=== PATIENT | male | born 1985 ===

== ENCOUNTER 2017-01-18 10:16 | Inpatient (IN) | payer MEDICAID ==
[2017-01-18 10:26] VITALS: BMI 38.2
[2017-01-18 10:27] VITALS: O2SAT 100
--- NOTE | 2017-01-18 10:35 | ED PDOC ---
Arrival/HPI - General Time Seen by Provider: 01/18/17 10:32 Historian: Patient, Other (transfer paper) - History of Present Illness Narrative History of Present Illness (Text): 01/18/17 31 yo male w/PMHx of depression, polysubstance abuse, transfer to [place] ED for admission to psych flood s/o . As per patient, " my depression worsen for past few days, developed suicidal ideation", denies attempts. Diagnostics review in transfer papers, appears without acute abnormalities. Pt is AAO#3, cooperative, not in any apparent distress. Past Medical History - Provider Review Nursing Documentation Reviewed: Yes - Travel History Have you recently traveled outside US w/in the past 3 mons?: No - Tetanus Immunization Tetanus Immunization: Unknown Family/Social History - Physician Review Nursing Documentation Reviewed: Yes Family/Social History: No Known Family HX Smoking Status: Heavy Smoker > 10 Cigarettes Daily Hx Alcohol Use: Yes Hx Substance Use: Yes Allergies/Home Meds Allergies/Adverse Reactions: Allergies No Known Allergies Allergy (Verified 01/18/17 12:29) Home Medications: Home Meds Medication Instructions Recorded Confirmed Benztropine [Cogentin] 1 mg PO DAILY 01/18/17 01/18/17 Haloperidol [Haldol] 10 mg PO DAILY 01/18/17 01/18/17 Review of Systems - Review of Systems Constitutional: Normal Eyes: Normal ENT: Normal Respiratory: Normal Cardiovascular: Normal Gastrointestinal: Normal Genitourinary Male: Normal Musculoskeletal: Normal Skin: Normal Neurological: Normal Endocrine: Normal Hemo/Lymphatic: Normal Psychiatric: Depression, Suicidal Ideation Physical Exam Vital Signs Reviewed: Yes Vital Signs Temp Pulse Resp BP Pulse Ox 01/18/17 10:26 98.7 F 87 18 127/86 100 Temperature: Afebrile Blood Pressure: Normal Pulse: Regular Respiratory Rate: Normal Appearance: Positive for: Well-Appearing, Non-Toxic, Comfortable Pain Distress: None Mental Status: Positive for: Alert and Oriented X 3 - Systems Exam Head: Present: Atraumatic, Normocephalic Pupils: Present: PERRL Conjunctiva: Present: Normal Mouth: Present: Moist Mucous Membranes. No: Drooling Neck: Present: Trachea Midline. No: JVD Respiratory/Chest: Present: Clear to Auscultation, Good Air Exchange. No: Respiratory Distress, Accessory Muscle Use Cardiovascular: Present: Regular Rate and Rhythm, Normal S1, S2. No: Murmurs Abdomen: Present: Normal Bowel Sounds. No: Tenderness, Distention, Peritoneal Signs, Rebound, Guarding Back: No: CVA Tenderness Upper Extremity: Present: Normal ROM, NORMAL PULSES, Capillary Refill < 2s. No : Deformity Lower Extremity: Present: NORMAL PULSES, Normal ROM. No: Edema, CALF TENDERNESS , Swelling, Deformity Neurological: Present: GCS=15, Speech Normal Skin: Present: Warm, Dry, Normal Color. No: Rashes Psychiatric: Present: Alert, Oriented x 3, Suicidal Ideation Medical Decision Making ED Course and Treatment: 01/18/17 Admission arranged to psych floor s/o . - Medication Orders Current Medication Orders: Acetaminophen (Tylenol 325mg Tab) 650 mg PO Q4 PRN PRN Reason: Pain, Mild (1-3) Last Admin: 01/18/17 13:00 Dose: 650 mg [facility] Pain/Vitals Document 01/18/17 13:00 TW (Rec: 01/18/17 13:00 TW [id number]) Pain Reassessment Is This A Pain ReAssessment? Yes Presence of Pain Presence of Pain Yes Pain Scale Used Pain Scale Used Numeric Location Pain Location Body Site Back Description Constant Intensity 3 Scale Used Numeric Re-Assess: [facility] Pain/Vitals Document 01/18/17 14:00 TW (Rec: 01/18/17 15:35 TW [id number]) Pain Reassessment Is This A Pain ReAssessment? Yes Presence of Pain Presence of Pain Yes Pain Scale Used Pain Scale Used Numeric Location Pain Location Body Site Back Intensity 1 Al Hydrox/Mg Hydrox/Simethicone (Maalox Plus 30 Ml) 30 ml PO DAILY PRN PRN Reason: Upset Stomach Benztropine Mesylate (Cogentin) 1 mg PO 1000,2200 ROMAINE Last Admin: 01/18/17 12:48 Dose: 1 mg Diphenhydramine HCl (Benadryl) 50 mg PO TID PRN PRN Reason: Agitation Haloperidol (Haldol) 5 mg PO TID PRN; Protocol PRN Reason: Agitation Haloperidol (Haldol) 5 mg PO 1000,2200 ROMAINE PRN Reason: Protocol Last Admin: 01/18/17 12:23 Dose: Haloperidol Lactate (Haldol) 5 mg IM TID PRN; Protocol PRN Reason: Agitation Lorazepam (Ativan) 2 mg PO TID PRN; Protocol PRN Reason: Agitation Lorazepam (Ativan) 2 mg IM TID PRN; Protocol PRN Reason: Agitation Lorazepam (Ativan) 2 mg PO Q6H ROMAINE PRN Reason: Protocol Magnesium Hydroxide (Milk Of Magnesia) 30 ml PO DAILY PRN PRN Reason: Constipation Discontinued Medications Diphenhydramine HCl (Benadryl) 50 mg PO TID PRN PRN Reason: Agitation Haloperidol (Haldol) 10 mg PO ONCE ONE PRN Reason: Protocol Stop: 01/18/17 12:23 Last Admin: 01/18/17 12:48 Dose: 10 mg Behavioural Document 01/18/17 12:48 TW (Rec: 01/18/17 12:48 TW [id number]) Maintenance Maintenance Dose Yes Re-Assess: Reassess Psych Meds Document 01/18/17 13:48 TW (Rec: 01/18/17 15:34 TW [id number]) Reassess Psych Med Effective Disposition/Present on Arrival - Present on Arrival Any Indicators Present on Arrival: No - Disposition Have Diagnosis and Disposition been Completed?: Yes Diagnosis: Depression Disposition: HOSPITALIZED Disposition Time: 10:34 Patient Plan: Admission Patient Problems: Current Active Problems Problem Status Onset Depression Acute Bipolar 1 disorder Acute Alcohol abuse Acute Condition: STABLE
[2017-01-18] MEDS ORDERED: Magnesium Hydroxide Susp 30 ml UD PO PRN (11:52)
[2017-01-18] MEDS ORDERED: Alum-Mag Hydrox-Simethicone Susp (30 mL) PO PRN (11:52)
--- NOTE | 2017-01-18 12:01 | PCM.BM ---
<Ming Bello - Last Filed: 01/18/17 11:59> Treatment Plan Problems - Problems identified on initial assessmt Command Auditory Hallucinations Date Initiated: 01/18/17 Time Initiated: 11:59 Status: Active Priority: 1 Altered Thought Process Date Initiated: 01/18/17 Time Initiated: 11:59 Assessment reference: NA Status: Active Priority: 2 Treatment assets and liabiliti Patient Assests: cooperative, ADL independent, negotiates basic needs Patient Liabilities: live alone, substance abuse - Milieu Protocol Maintain good personal hygiene: daily Encourage regular showers, daily Remind patient to perform daily oral care, daily Assist patient to perform ADL's Maintain personal safety: every shift Educate patient to report safety concerns to staff, every shift Monitor environment for contraband/sharps Medication safety: Monitor for expected outcome, potential side effects: every shift, Assess barriers to learning: every shift, Assess readiness for medication education: every shift Discharge/Continuing Care - Education Needs Education Needs: Patient Medication, Patient Diagnosis/Disease Process, Patient Coping Skills - Discharge Discharge Criteria: Tolerates medication w/o severe side effects, Free of Suicidal thoughts, Normal sleep pattern <Clary Aguila - Last Filed: 01/18/17 13:06> - Diagnosis (1) Bipolar 1 disorder Status: Acute Interventions: 01/18/17 13:08 Psychoeducation Psychopharmacology/adjustment of medications as needed/ monitoring possible side effects Monitor blood level of mood stabilizers Evaluate pt on daily basis Compliance with medications and follow up appointments Suicide and homicide risk assessment and prevention, coping strategies, safety plan Relapse prevention Reduction of symptoms Improve functional status Family involvement As outpatient: cognitive behavioral therapy (2) Alcohol abuse Status: Acute Interventions: 01/18/17 13:08 Monitoring withdrawal symptoms Medical detoxification Pharmacotherapy for alcohol/benzos/opioid dependence Maintaining sobriety Relapse prevention Possible rehabilitation Motivational interviewing 12-step programs: AA meetings <Lolis Stephens - Last Filed: 01/21/17 09:38> Family Contact Family involvement: Famliy/SO not involved Family contact: Patient declines to allow family contact at present - Goals for Treatment Patient goals for treatment: "To go to [place], [place]."
--- NOTE | 2017-01-18 13:20 | PCM.PSYCH ---
<Clary Aguila - Last Filed: 01/18/17 14:25> Initial Psychiatric Evaluation - Initial Psychiatric Evaluation Type of Admission: Voluntary Chief Complaint (in patient's own words): "The voices were really loud" Patient's Reaction to Hospitalization: "I need my shot, I need my medication, and I want to go to live in a sober house " History of Present Illness and Precipitating Events: This 31 year old male was referred from [facility] emergency room for inpatient admission. Patient is homeless, indicates he lived most recently in [place] for the last 8 days, but prior to that was living in [place]. 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 He is not on public assistance having never stayed anywhere long enough to get benefits or housing. 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 Patient has been having psychiatric symptoms since he was 20 and had his first hospitalization. He has been hospitalized "40 to 50 times" in multiple states, a mixture of involuntary and voluntary admissions. He denies any history of suicide attempts indicating he is always hospitalized "for the voices". He has been stabilized in the past with Haldol and cogentin, as well as the Haldol Decanoate shot. He is always noncompliant with followup quickly moving to new places. He hears voices at baseline. He denies any allergies to food or drugs, and indicates he does not have any ongoing medical issues. Patient uses alcohol daily when he can get it of varying amounts, his last drink was according to him 4 days ago. He smokes marijuana when he can get it, denies any use of any other illicit drugs. Patient denies any legal issues, denies ever being arrested. Family history is negative for psychiatric issues, his father of alcoholism. Patient grew up in [place], he is the youngest of 5 and the only one to be raised by his father. He does not have a relationship with his family. He says his childhood was "great" and he did well in school and had friends until middle school. He is not sure why that changed. He dropped out kiara year to take care of his father who when he was 17. He has no other educational history and has never worked. Patient is alert and oriented x3, eye contact is poor, and patient is preoccupied appearing to be responding to internal stimuli. He denies being suicidal or homicidal. Mood is blunted, affect is irritable, thoughts at time are concrete and simplistic. He denies the presence of visual hallucinations, however he does hear audio hallucinations at baseline. He indicates the voices are "loud background noise" and denies that they are command. He denies the presence of delusions, paranoid trends are present in conversation. His focus and concentration are impaired, he reports his sleep and appetite as good. AIMS exam today was negative. PLAN:Psychoeducation Psychopharmacology/adjustment of medications as needed/ monitoring possible side effects Monitor blood level of mood stabilizers Evaluate pt on daily basis Compliance with medications and follow up appointments Suicide and homicide risk assessment and prevention, coping strategies, safety plan Relapse prevention Reduction of symptoms Improve functional status Family involvement As outpatient: cognitive behavioral therapy Assess for withdrawal and medicate appropriately. Current Medications: Active Medications Generic Name Dose Route Start Last Admin Trade Name Freq PRN Reason Stop Dose Admin Acetaminophen 650 mg 01/18/17 11:52 01/18/17 13:00 Tylenol 325mg Tab PO 650 mg Q4 PRN Administration Pain, Mild (1-3) Al Hydrox/Mg Hydrox/Simethicone 30 ml 01/18/17 11:52 Maalox Plus 30 Ml PO DAILY PRN Upset Stomach Benztropine Mesylate 1 mg 01/18/17 12:22 01/18/17 12:48 Cogentin PO 1 mg 1000,2200 ROMAINE Administration Diphenhydramine HCl 50 mg 01/18/17 11:55 Benadryl PO TID PRN Agitation Haloperidol 5 mg 01/18/17 11:40 Haldol PO TID PRN Agitation Protocol Haloperidol 5 mg 01/18/17 11:46 01/18/17 12:23 Haldol PO Not Given 1000,2200 ROMAINE Protocol Haloperidol Lactate 5 mg 01/18/17 11:40 Haldol IM TID PRN Agitation Protocol Lorazepam 2 mg 01/18/17 11:40 Ativan PO TID PRN Agitation Protocol Lorazepam 2 mg 01/18/17 11:40 Ativan IM TID PRN Agitation Protocol Magnesium Hydroxide 30 ml 01/18/17 11:52 Milk Of Magnesia PO DAILY PRN Constipation Past Psychiatric History - Past Psychiatric History Pertinent Medical Hx (Current Medical&Sleep Prob, Allergies): Allergies Allergy/AdvReac Type Severity Reaction Status Date / Time No Known Allergies Allergy Verified 01/18/17 12:29 Benztropine [Cogentin] 1 mg PO DAILY 01/18/17 Haloperidol [Haldol] 10 mg PO DAILY 01/18/17 <Yancy Bradley - Last Filed: 01/18/17 16:18> Initial Psychiatric Evaluation - Initial Psychiatric Evaluation Type of Admission: Voluntary Legal Status: Capacity (pt has capacity to sign consent for treatment) Patient's Reaction to Hospitalization: pt was transferred from [facility] for evaluation of psychosis, possible SI , meds resumption and titration History of Present Illness and Precipitating Events: addendum to the [facility] note: patient has long history of mental illness, most likely patient has history or schizoaffective disorder versus schizophrenia, multiple admissions to the psychiatric inpatient unit, patient denied history of suicidal attempts. patient was transferred from the [facility] for evaluation of possible suicidal ideation, worsening of psychotic symptoms, patient was noncompliant with the medications, patient also has history of alcohol use disorder blood alcohol level in the emergency room [facility] was 66, marijuana was positive. As per [facility] report pt reported "I was hearing voices, suicidal, and depressed; " "I thought I could make it, but I need to be somewhere safe" Pt is originally from [place], [place] and reports being hospitalized in the [facility] of [place], [place], [place], [place] all secondary to experiencing "voices"; Pt stated he has been diagnosed with "Paranoid Schizophrenia"; Pt reportedly left [place], [place] "7months ago" and relocated in [facility]. During interview patient presented to be disorganized, paranoid, irritable, impulses aren't predictable. Medication management was discussed with the patient, patient was educated about treatment plan. Current Medications: Active Medications Generic Name Dose Route Start Last Admin Trade Name Freq PRN Reason Stop Dose Admin Acetaminophen 650 mg 01/18/17 11:52 01/18/17 13:00 Tylenol 325mg Tab PO 650 mg Q4 PRN Administration Pain, Mild (1-3) Al Hydrox/Mg Hydrox/Simethicone 30 ml 01/18/17 11:52 Maalox Plus 30 Ml PO DAILY PRN Upset Stomach Benztropine Mesylate 1 mg 01/18/17 12:22 01/18/17 12:48 Cogentin PO 1 mg 1000,2200 ROMAINE Administration Diphenhydramine HCl 50 mg 01/18/17 11:55 Benadryl PO TID PRN Agitation Haloperidol 5 mg 01/18/17 11:40 Haldol PO TID PRN Agitation Protocol Haloperidol 5 mg 01/18/17 11:46 01/18/17 12:23 Haldol PO Not Given 1000,2200 ROMAINE Protocol Haloperidol Lactate 5 mg 01/18/17 11:40 Haldol IM TID PRN Agitation Protocol Lorazepam 2 mg 01/18/17 11:40 Ativan PO TID PRN Agitation Protocol Lorazepam 2 mg 01/18/17 11:40 Ativan IM TID PRN Agitation Protocol Magnesium Hydroxide 30 ml 01/18/17 11:52 Milk Of Magnesia PO DAILY PRN Constipation Past Psychiatric History - Past Psychiatric History Prior Professional Help: see HPI Prior Psychiatric Treatment: see HPI At what hospital: see HPI Duration: see HPI Nature of Treatment: see HPI Explanation of prior treatment: see HPI Patient reported being on haloperidol, Cogentin, willing to resume medication History of Abuse: denied History of ETOH/Drug Use: see HPI History of Family Illness: unknown Pertinent Medical Hx (Current Medical&Sleep Prob, Allergies): Allergies Allergy/AdvReac Type Severity Reaction Status Date / Time No Known Allergies Allergy Verified 01/18/17 12:29 Benztropine [Cogentin] 1 mg PO DAILY 01/18/17 Haloperidol [Haldol] 10 mg PO DAILY 01/18/17 Review of Systems - Review of Systems Systems not reviewed;Unavailable: Acuity of Condition - EENT Eyes: As Per HPI Ears: As Per HPI Nose/Mouth/Throat: As Per HPI - Cardiovascular Cardiovascular: As Per HPI - Respiratory Respiratory: As Per HPI - Gastrointestinal Gastrointestinal: As Per HPI - Genitourinary Genitourinary: As Per HPI - Reproductive: Male Reproductive:Male: As Per HPI - Musculoskeletal Musculoskeletal: As Par HPI - Integumentary Integumentary: As Per HPI - Neurological Neurological: As Per HPI - Psychiatric Psychiatric: As Per HPI - Endocrine Endocrine: As Per HPI - Hematologic/Lymphatic Hematologic: As Per HPI Mental Status Examination - Personal Presentation Personal Presentation: Looks stated age - Affect Affect: Constricted (angry, irritable) - Motor Activity Motor Activity: Calm - Reliability in Providing Information Reliability in Providing Information: Poor, due to alteration in thoughts, Poor , due to altered mood, Poor, due to cognitve impairment - Speech Speech: Disorganized, Tangential, Other (concrete) - Mood Mood: Depressed, Anxious, Other ("I feel fine") Additional comments: pt has irritable affect mood incongruent - Formal Thought Process Formal Thought Process: Hallucinations, Paranoia - Hallucinations/Delusions Hallucinations: Auditory - Cognitive Functions Orientation: Person, Place, Situation Sensorium: Alert Attention/Concentration: Easily distracted Abstract Thinking: [place] Estimate of Intelligence: Below average Judgement: Intact, as evidence by: Insight regarding need for hospitalization - Risk Risk: Withdrawal, Self-mutilation, Diminished functioning, Other (no support in the community) - Strength & Assets Inventory Strength & Assets Inventory: Cooperative (has good insight into his illness) - Limitations Limitations: Other (long h/o mental illness, recent move from other state, noncompliance with meds, poor support) DSM 5 DX - DSM 5 DSM 5 Diagnosis: r/o schizoaffective disorder r/o schizophrenia r/o bipolar disorder with psychosis alcohol abuse - Recommended/Plan of Treatment Treatment Recommendations and Plan of Treatment: Milieu/structure/supportive therapy Medical consult appreciated, see medical team note for more detailed info consultation for discharge plan and social issues Med management haldol 5mg po bid for psychosis cogentin 2mg po bid for EPS PRN ativan for possible alcohol withdrawals PRN meds for possible agitation MVI, thiamine, folic acid Family involvement Follow up on labs Will monitor closely SW evaluation for d/c planning Pt was educated about risk/benefits and alternatives of medications, coping strategies (safety plan, suicide prevention), relapse prevention, importance of follow up with psychiatrist and therapist, stay away from drugs/alcohol/smoking Projected ELOS: 7days Prognosis: guarded Discharge Plan and Discharge Criteria: Pt will be not depressed or manic, will be more hopeful, will be not psychotic or anxious, will be not having thoughts of harming self or others, will be tolerating medications well, will not have major side effects, will be able to function, will not pose threat to self or others. - Smoking Cessation Smoking Cessation Initiated: Yes Reason for not providinpack a day, does not want to be on NicoDerm patch, counseling provided
[2017-01-19 08:20] LABS: CHOLESTEROL 131 mg/dL (130-200); GLUCOSE,FASTING 105 mg/dL (65-110)
[2017-01-19 08:49] LABS: THYROID STIMULATING HORMONE 1.86 mIU/mL (0.46-4.68)
[2017-01-19 11:16] LABS: BASO # 0.07 K/mm3 (0.0-2.0); BASO % 0.7 % (0.0-3.0); EOS # 0.3 (0.0-0.7); EOS % 2.4 % (1.5-5.0); GRAN # 6.32 (1.4-6.5); GRAN % 61.4 % (50.0-68.0); HEMATOCRIT 45.5 % (42.0-52.0); LYMPH # 2.8 (1.2-3.4); LYMPH % 26.7 % (22.0-35.0); MEAN CELL VOLUME 91.4 fl (80.0-105.0); MEAN CORPUSCULAR HEMOGLOBIN 31.1 pg (25.0-35.0); MEAN CORPUSCULAR HGB CONC 34.1 g/dl (31.0-37.0); MEAN PLATELET VOLUME 10.7 fl (7.0-11.0); MONO # 0.9 (0.1-0.6); MONO % 8.8 % (1.0-6.0); RED CELL DISTRIBUTION WIDTH 13.7 % (11.5-14.5); WHITE BLOOD COUNT 10.3 10^3/ul (4.5-11.0)
[2017-01-19 11:19] LABS: FREE T4 1.22 ng/dL (0.78-2.19)
--- NOTE | 2017-01-19 17:17 | CP.PCM.CON ---
<Christine Dill - Last Filed: 01/19/17 17:14> History of Present Illness - History of Present Illness History of Present Illness: Christine Dill DO PGY1 - Internal Medicine Consult Note Consultation for medical screening HPI: 31 year old male with past medical history of paranoid schizophrenia presents from [facility] with complaint of hearing voices, depression, and possible suicidal ideation. He reports multiple psychiatric admissions in the past; he has taken Haldol in the past but admits to noncompliance. He denies somatic complaints including fever/chills, headache, vision changes, shortness of breath, chest pain, and abdominal pain. He admits to drinking 1 pint vodka daily; he denies tremor, diaphoresis, visual hallucinations. 12 point ROS is negative except as in HPI PMH: denies PSH: denies Allergy: NKDA Home meds: none Family Hx: none Social Hx: Drinks 1 pint vodka daily, current active smoker 1ppd, uses marijuana , denies other drug use. Homeless, recently moved to [place] from [place]. Past Patient History - Tetanus Immunizations Tetanus Immunization: Unknown - Past Social History Smoking Status: Heavy Smoker > 10 Cigarettes Daily - PSYCHIATRIC Hx Substance Use: Yes Meds Allergies/Adverse Reactions: Allergies Allergy/AdvReac Type Severity Reaction Status Date / Time No Known Allergies Allergy Verified 01/18/17 12:29 - Medications Medications: Current Medications Acetaminophen (Tylenol 325mg Tab) 650 mg PO Q4 PRN PRN Reason: Pain, Mild (1-3) Last Admin: 01/18/17 13:00 Dose: 650 mg Al Hydrox/Mg Hydrox/Simethicone (Maalox Plus 30 Ml) 30 ml PO DAILY PRN PRN Reason: Upset Stomach Benztropine Mesylate (Cogentin) 1 mg PO 1000,2200 ROMAINE Last Admin: 01/19/17 10:07 Dose: 1 mg Diphenhydramine HCl (Benadryl) 50 mg PO TID PRN PRN Reason: Agitation Haloperidol (Haldol) 5 mg PO TID PRN; Protocol PRN Reason: Agitation Haloperidol (Haldol) 5 mg PO 1000,2200 ROMAINE PRN Reason: Protocol Last Admin: 01/19/17 10:06 Dose: 5 mg Haloperidol Lactate (Haldol) 5 mg IM TID PRN; Protocol PRN Reason: Agitation Lorazepam (Ativan) 2 mg PO TID PRN; Protocol PRN Reason: Agitation Lorazepam (Ativan) 2 mg IM TID PRN; Protocol PRN Reason: Agitation Lorazepam (Ativan) 2 mg PO Q6H ROMAINE PRN Reason: Protocol Last Admin: 01/19/17 12:50 Dose: 2 mg Magnesium Hydroxide (Milk Of Magnesia) 30 ml PO DAILY PRN PRN Reason: Constipation Physical Exam - Constitutional Appears: Non-toxic, No Acute Distress - Head Exam Head Exam: ATRAUMATIC, NORMOCEPHALIC - Eye Exam Eye Exam: EOMI, Normal appearance, PERRL Pupil Exam: absent: Miosis, Mydriatic - ENT Exam ENT Exam: Mucous Membranes Moist - Neck Exam Neck exam: Positive for: Normal Inspection - Respiratory Exam Respiratory Exam: Clear to Auscultation Bilateral, NORMAL BREATHING PATTERN - Cardiovascular Exam Cardiovascular Exam: REGULAR RHYTHM, +S1, +S2 - GI/Abdominal Exam GI & Abdominal Exam: Normal Bowel Sounds, Soft. absent: Distended, Firm, Guarding, Rebound, Rigid, Tenderness - Extremities Exam Extremities exam: Negative for: calf tenderness, pedal edema - Neurological Exam Neurological exam: Alert, CN II-XII Intact, Oriented x3 - Psychiatric Exam Additional comments: No apparent suicidal ideation Euphoric Laughing at things we could not see/hear - Skin Skin Exam: Dry, Intact Results - Vital Signs Recent Vital Signs: Last Vital Signs Temp 98.7 F 01/18/17 10:26 Pulse 65 01/19/17 15:51 Resp 16 01/18/17 11:33 BP 114/70 01/19/17 15:51 Pulse Ox 100 01/18/17 10:26 - Labs Result Diagrams: 01/19/17 11:13 Labs: Laboratory Results - last 24 hr 01/19/17 01/19/17 01/19/17 07:45 07:45 11:13 WBC 10.3 RBC 4.98 Hgb 15.5 Hct 45.5 MCV 91.4 MCH 31.1 MCHC 34.1 RDW 13.7 Plt Count 259 MPV 10.7 Gran % 61.4 Lymph % (Auto) 26.7 [place] % (Auto) 8.8 H Eos % (Auto) 2.4 Baso % (Auto) 0.7 Gran # 6.32 Lymph # 2.8 [place] # 0.9 H Eos # 0.3 Baso # 0.07 Fasting Glucose 105 Triglycerides 128 Cholesterol 131 LDL Cholesterol Direct 65 HDL Cholesterol 44 Free T4 1.22 TSH 3rd Generation 1.86 Assessment & Plan - Assessment and Plan (Free Text) Assessment: Assessment: 31 year old male with history of multiple psychiatric admissions for paranoid schizophrenia presents for psychiatric treatment with complaint of auditory hallucinations, depression, and possible suicidal ideation. Plan 1.Auditory hallucinations secondary to acute psychosis vs. substance-induced - Hx of paranoid schizophrenia - currently on Haldol, Ativan, Cogentin - Pt had labs drawn for prior admission at [facility] notable for alcohol level 66; urine positive for benzos, marijuana - Considering history and current presentation, less likely to be 2/2 substance abuse/withdrawal; does not appear to be actively withdrawing - Continue management as per psych 2.Depression with suicidal ideation - Patient currently denies suicidal ideation - TSH and BS normal - Continue management as per psych 3.Leukocytosis (on admission at [facility] on 01/18) - Patient is afebrile, no signs/symptoms of infectious processes - Initial UA and CXR negative - Leukocytosis resolved on repeat CBC; likely reactive 4.Alcohol use disorder - Alcohol level 66 (on admission at [facility] on 01/18) - Patient does not appear to be actively withdrawing - Continue PRN Ativan for symptoms of withdrawal 5.Tobacco use disorder - Refused nicotine patch - Encourage smoking cessation 6.Substance use disorder - Urine positive for benzos, marijuana (on admission at [facility] on 01/18) - Encourage drug use cessation DVT Ppx: patient is ambulatory Patient was seen, discussed, and reviewed with attending <Nona Oh - Last Filed: 01/19/17 17:46> Meds - Medications Medications: Current Medications Acetaminophen (Tylenol 325mg Tab) 650 mg PO Q4 PRN PRN Reason: Pain, Mild (1-3) Last Admin: 01/18/17 13:00 Dose: 650 mg Al Hydrox/Mg Hydrox/Simethicone (Maalox Plus 30 Ml) 30 ml PO DAILY PRN PRN Reason: Upset Stomach Benztropine Mesylate (Cogentin) 1 mg PO 1000,2200 RMOAINE Last Admin: 01/19/17 10:07 Dose: 1 mg Diphenhydramine HCl (Benadryl) 50 mg PO TID PRN PRN Reason: Agitation Haloperidol (Haldol) 5 mg PO TID PRN; Protocol PRN Reason: Agitation Haloperidol (Haldol) 5 mg PO 1000,2200 ROMAINE PRN Reason: Protocol Last Admin: 01/19/17 10:06 Dose: 5 mg Haloperidol Lactate (Haldol) 5 mg IM TID PRN; Protocol PRN Reason: Agitation Lorazepam (Ativan) 2 mg PO TID PRN; Protocol PRN Reason: Agitation Lorazepam (Ativan) 2 mg IM TID PRN; Protocol PRN Reason: Agitation Lorazepam (Ativan) 2 mg PO Q6H ROAMINE PRN Reason: Protocol Last Admin: 01/19/17 12:50 Dose: 2 mg Magnesium Hydroxide (Milk Of Magnesia) 30 ml PO DAILY PRN PRN Reason: Constipation Results - Vital Signs Recent Vital Signs: Last Vital Signs Temp 98.7 F 01/18/17 10:26 Pulse 65 01/19/17 15:51 Resp 16 01/18/17 11:33 BP 114/70 01/19/17 15:51 Pulse Ox 100 01/18/17 10:26 - Labs Result Diagrams: 01/19/17 11:13 Labs: Laboratory Results - last 24 hr 01/19/17 01/19/17 01/19/17 07:45 07:45 11:13 WBC 10.3 RBC 4.98 Hgb 15.5 Hct 45.5 MCV 91.4 MCH 31.1 MCHC 34.1 RDW 13.7 Plt Count 259 MPV 10.7 Gran % 61.4 Lymph % (Auto) 26.7 [place] % (Auto) 8.8 H Eos % (Auto) 2.4 Baso % (Auto) 0.7 Gran # 6.32 Lymph # 2.8 [place] # 0.9 H Eos # 0.3 Baso # 0.07 Fasting Glucose 105 Triglycerides 128 Cholesterol 131 LDL Cholesterol Direct 65 HDL Cholesterol 44 Free T4 1.22 TSH 3rd Generation 1.86 Attending/Attestation - Attestation I have personally seen and examined this patient.: Yes I have fully participated in the care of the patient.: Yes I have reviewed all pertinent clinical information: Yes Notes (Text): 01/19/17 17:32 MEDICAL CONSULTATION 30 year old male with past medical history of schizophrenia who presented with auditory hallucinations, depressed mood with SI. Continue with management as per psychiatrist. He is currently on haldol and ativan. He was counselled on risks of continued substance abuse. He was counselled on alcohol abstinence. He was counselled on smoking cessation. Labs and chart were reviewed. No acute medical issues. Thank you Dr. Bradley for allowing us to participate in the care of this patient. Please re-consult as needed. Nona Oh MD Hospitalist.
--- NOTE | 2017-01-19 17:44 | PCM.PYCHPN ---
Psychiatric Progress Note - Psychiatric Progress Note Patient seen today, length of contact: 30min Patient Chief Complaint: "I feel fine, I want to go to [place]" Problems Identified/Issues Discussed: Suicide/ homicide prevention, past psychiatric h/o, current psychiatric symptoms , medical problems, risk/benefits and alternatives of medications, medications compliance, coping strategies, substance abuse h/o, relapse prevention, importance of follow up with psychiatrist and therapist, discharge plan. Medical Problems: atient reported making healthy, medical team so patient. Diagnostic Results: 01/19/17 11:13 Lab Results 01/19/17 11:13: WBC 10.3, RBC 4.98, Hgb 15.5, Hct 45.5, MCV 91.4, MCH 31.1, MCHC 34.1, RDW 13.7, Plt Count 259, MPV 10.7, Gran % 61.4, Lymph % (Auto) 26.7, [place] % (Auto) 8.8 H, Eos % (Auto) 2.4, Baso % (Auto) 0.7, Gran # 6.32, Lymph # 2.8, [place] # 0.9 H, Eos # 0.3, Baso # 0.07 01/19/17 07:45: Free T4 1.22, TSH 3rd Generation 1.86 01/19/17 07:45: Fasting Glucose 105, Triglycerides 128, Cholesterol 131, LDL Cholesterol Direct 65, HDL Cholesterol 44 Vital Signs Temp Pulse Resp BP Pulse Ox 01/19/17 15:51 65 114/70 01/18/17 16:00 68 113/67 01/18/17 11:33 16 01/18/17 10:26 98.7 F 87 18 127/86 100 DSM 5 Symptoms Update: patient has long history of mental illness, most likely patient has history or schizoaffective disorder versus schizophrenia, multiple admissions to the psychiatric inpatient unit, patient denied history of suicidal attempts. patient was transferred from the [facility] for evaluation of possible suicidal ideation, worsening of psychotic symptoms, patient was noncompliant with the medications, patient also has history of alcohol use disorder blood alcohol level in the emergency room [facility] was 66, marijuana was positive. As per [facility] report pt reported "I was hearing voices, suicidal, and depressed; " "I thought I could make it, but I need to be somewhere safe" Pt is originally from [place], [place] and reports being hospitalized in the states of [place], [place], [place], and [place] all secondary to experiencing "voices"; Pt stated he has been diagnosed with "Paranoid Schizophrenia"; Pt reportedly left [place], [place] "7months ago" and relocated in [facility]. During interview patient presented to be disorganized, paranoid, irritable, impulsive, but with some improvement. Medication management was discussed with the patient, patient was educated about treatment plan. and was seen today at the treatment team meeting, patient presented to be disorganized, loud, residual symptoms of psychosis, but there is some improvement with patient presentation, patient was less paranoid, still internally preoccupied. He shouldn't tolerates medications well, no side effects observed or reported, aims 0, no EPS DSM 5 Diagnosis: r/o schizoaffective disorder r/o schizophrenia r/o bipolar disorder with psychosis alcohol abuse Medication Change: Yes (medication resumed) Medical Record Reviewed: Yes Consults ordered or reviewed: edical team consult appreciated Mental Status Examination - Cognitive Function Orientation: Person, Place, Situation Memory: Intact Attention: Poor Concentration: Poor Association: WNL Fund of Knowledge: Poor - Mood Mood: Depressed, Anxious, Other ("I feel fine") - Affect Affect: Constricted (angry, irritable) - Formal Thought Process Formal Thought Process: Hallucinations, Paranoia - Suicidal Ideation Suicidal Ideation: No - Homicidal Ideation Homicidal Ideation: No Goal/Treatment Plan - Goal/Treatment Plan Need for Continued Stay: Remain at risks for inpatient hospitalization, Severe depression anxiety, Discharge may exacerbated symptoms, Severe functional impairment Progress Toward Problem(s) and Goals/Treatment Plan: Milieu/structure/supportive therapy Medical consult appreciated, see medical team note for more detailed info consultation for discharge plan and social issues Med management haldol 5mg po bid for psychosis cogentin 2mg po bid for EPS PRN ativan for possible alcohol withdrawals PRN meds for possible agitation MVI, thiamine, folic acid Family involvement Follow up on labs Will monitor closely evaluation for d/c planning Pt was educated about risk/benefits and alternatives of medications, coping strategies (safety plan, suicide prevention), relapse prevention, importance of follow up with psychiatrist and therapist, stay away from drugs/alcohol/smoking Estimated Date of D/C: 01/21/17
[2017-01-20 13:59] VITALS: RESP 20
--- NOTE | 2017-01-20 21:43 | PCM.PYCHPN ---
Psychiatric Progress Note - Psychiatric Progress Note Patient seen today, length of contact: 20min Patient Chief Complaint: "I don't have voices no more and I want to be discharged" " Problems Identified/Issues Discussed: Patient indicates that he is no longer hearing voices and would like to be discharged. He no longer wants the Haldol Decanoate shot. He wants to be discharged to "meet up with his sister" in but in the past has indicated he is not involved with his family. Later in the conversation he tells me that he hears voices all of the time but with the medication they are less. He wants to leave AMA, procedure of the 48 hour notice explained to the client, he declines this but continues to demand discharge. Eventually he is agreeable to stay, paranoid trends were noted, patient's conversation at times is simplistic and illogical. He does not want more medication, and is edgy but easily calmed. This may be his baseline. AIMS exam negative. Diagnosis: Schizoaffective Disorder, Alcohol use Disorder, Cannabis use Disorder , poor insight, noncompliance in the community, homelessness Plan: Milieu/structure/supportive therapy Medical consult appreciated, see medical team note for more detailed info consultation for discharge plan and social issues Med management Family involvement Follow up on labs Will monitor closely evaluation for d/c planning Pt was educated about risk/benefits and alternatives of medications, coping strategies (safety plan, suicide prevention), relapse prevention, importance of follow up with psychiatrist and therapist, stay away from drugs/alcohol/smoking DSM 5 Symptoms Update: Patient is alert and oriented x3, eye contact is good, he is cooperative with some irritability. Speech rate and volume are within normal limits, mood is somewhat labile but under his control. Affect is constricted. Thoughts are goal directed but concrete and simplistic. He denies being suicidal or homicidal, denies the presence of audio or visual hallucinations, delusions or paranoia however patient appeared to be paranoid at times during the interview. Focus and concentration are poor, appetite and sleep are reported as normal. Medication Change: No Medical Record Reviewed: Yes Mental Status Examination - Cognitive Function Orientation: Person, Place, Situation Memory: Intact Attention: Poor Concentration: Poor Association: WNL Fund of Knowledge: Poor - Mood Mood: Depressed, Anxious, Other ("I feel fine") - Affect Affect: Constricted (angry, irritable) - Formal Thought Process Formal Thought Process: Hallucinations, Paranoia - Suicidal Ideation Suicidal Ideation: No - Homicidal Ideation Homicidal Ideation: No Goal/Treatment Plan - Goal/Treatment Plan Need for Continued Stay: Remain at risks for inpatient hospitalization, Severe depression anxiety, Discharge may exacerbated symptoms, Severe functional impairment Estimated Date of D/C: 01/21/17 - Smoking Cessation Smoking Cessation Initiated: No Reason for not providing: Patient refused "I don't do the patch"
[2017-01-21 06:53] VITALS: BP 108/60; PULSE 60; TEMP 98.1
--- NOTE | 2017-01-21 10:30 | PCM.PYCHDC ---
Mental Status Examination - Mental Status Examination Orientation: Person, Place, Situation Memory: Intact Mood: Neutral Affect: Broad Speech: Appropriate Attention: WNL Concentration: WNL Association: WNL Fund of Knowledge: WNL Formal Thought Process: No Impairment Description of patient's judgement and insight: Improved with fair insight and judgment Psychotic Thoughts and Behaviors: Patient denies AVH, delusions were not elicited. Patient denies paranoia and does not appear paranoid. Hypervigilance was not observed. Patient was not observed to be responding to internal stimuli. Suicidal Ideation: No Current Homicidal Ideation?: No Discharge Summary - Discharge Note Reason for Hospitalization: Patient has long history of mental illness, most likely patient has history or schizoaffective disorder versus schizophrenia, multiple admissions to the psychiatric inpatient unit, patient denied history of suicidal attempts. patient was transferred from the [facility] for evaluation of possible suicidal ideation, worsening of psychotic symptoms, patient was noncompliant with the medications, patient also has history of alcohol use disorder blood alcohol level in the emergency room [facility] was 66, marijuana was positive. Psychiatric History (includes Medical, Family, Personal Hx): see HPI Laboratory Data: Laboratory Tests 01/19/17 01/19/17 01/19/17 07:45 07:45 07:45 WBC RBC Hgb Hct MCV MCH MCHC RDW Plt Count MPV Gran % Lymph % (Auto) [place] % (Auto) Eos % (Auto) Baso % (Auto) Gran # Lymph # Howard # Eos # Baso # Fasting Glucose 105 Triglycerides 128 Cholesterol 131 LDL Cholesterol Direct 65 HDL Cholesterol 44 Free T4 1.22 TSH 3rd Generation 1.86 RPR Nonreactive 01/19/17 11:13 WBC 10.3 RBC 4.98 Hgb 15.5 Hct 45.5 MCV 91.4 MCH 31.1 MCHC 34.1 RDW 13.7 Plt Count 259 MPV 10.7 Gran % 61.4 Lymph % (Auto) 26.7 [place] % (Auto) 8.8 H Eos % (Auto) 2.4 Baso % (Auto) 0.7 Gran # 6.32 Lymph # 2.8 [place] # 0.9 H Eos # 0.3 Baso # 0.07 Fasting Glucose Triglycerides Cholesterol LDL Cholesterol Direct HDL Cholesterol Free T4 TSH 3rd Generation RPR Consultations:: List each consultation separately and include: 1. Reason for request. 2. Findings. 3. Follow-up Consultations: Patient seen by Dr. Oh on 01/19/17. Dr. Oh signed off as there were no acute medical issues. Summary of Hospital Course include:: 1. Description of specific treatment plan utilized for patients during their course of treatmen. 2. Summarize the time- course for resolution of acute symptoms and/or regressed behaviors. 3. Describe issues identified and worked on during hospitalization. 4. Describe medication utilized. 5. Describe medical problems identified and treated. 6. Reassessment of suicide risk Summary of Hospital Course: I reviewed assessment and recent notes. Patient was interviewed at bedside. He has been requesting discharge but declines submitting a 48 hour letter. He has a long history of mental illness, most likely schizoaffective disorder versus schizophrenia and multiple admissions to the psychiatric inpatient units. Patient was transferred from the [facility] for evaluation of possible suicidal ideation, worsening of psychotic symptoms in context of medication noncompliance as well as alcohol use. Of note, patient's blood alcohol level in [facility] ER was 66, UDS was positive for marijuana. As per [facility] report pt reported "I was hearing voices, suicidal, and depressed; " "I thought I could make it, but I need to be somewhere safe". Patient presented to [facility] with paranoia, disorganization, lability/irritability. His symptoms are improving, reports have noted improvement in paranoia, liability and impulsivity. This morning patient reported that hallucinations have resolved. His thought process is fairly coherent and consistent during my 3 interviews with him today. He jokes appropriately with me and appears fairly related. He is anxious about being discharged as soon as possible but he isn't demanding, argumentative or threatening. Patient is not responding to internal stimuli and delusions were not elicited. His eye contact and focus were fair. I reviewed his medications, their indications and side effects. I discuss the danger of continued alcohol use as well as risks of alcohol withdrawal (including seizures and ). Patient is honest and admits that he isn't sure that he will remain abstinent after discharge. However he would like a tapering dose of Ativan to help with withdrawals. He defers on naltrexone options. He is aware that he should not drink and take Ativan at the same time due to risks of respiratory depression and . This information was also written out for him though his comprehension is intact. Recent staff notes indicate that patient has been compliant with medications, engaged in groups and sleeping well. He was irritable yesterday because there was no hot water for his shower--this is reasonable. He also seemed paranoid-- this symptom wasn't noticeable to this provider during our interview today. Overall patient is comfortable with discharge today. He denies any issues with his medications and feels they are beneficial. Commits to compliance and requests that I call his prescriptions into [facility] at [place]. - Final Diagnosis (DSM 5) Condition upon Discharge: FAIR DSM 5: r/o schizoaffective disorder r/o schizophrenia r/o bipolar disorder with psychosis alcohol abuse Disposition: HOME/ ROUTINE Follow-up Treatment Plan: PER 01/20/17 08:51 - Social Work Progress Note by Lolis Stephens Patient referred to [facility] and [facility] partial program. This provider phoned [facility] on 01/21/17 and provided following medications for patient: Haldol 5 mg po bid +1RF Cogentin 1 mg po bid + 1RF Ativan 2 mg po q8 x48 hours total of 6 doses Then Ativan 2 mg po q12 x48 hours total of 4 doses Then Ativan 2 mg po daily x72 hours total of 3 doses, no RF - Smoking Cessation Smoking Cessation Medication prescribed: No - Antipsychotic Medications Pt discharged on 2 or more routine antipsychotic medications: No
== END 2017-01-21 10:52 | disposition home or self-care (01) | DRG 430 ==
LOC: ED 10:16 → ERH 10:33 → PSYC 11:08
PROVIDERS: ADMIT Psychiatry & Neurology Psychiatry; ATTEND Psychiatry & Neurology Psychiatry
DX: F31.9 Bipolar disorder, unspecified (principal); F10.10 Alcohol abuse, uncomplicated; F12.10 Cannabis abuse, uncomplicated; Y90.3 Blood alcohol level of 60-79 mg/100 ml; F17.210 Nicotine dependence, cigarettes, uncomplicated; Z59.0 Homelessness

== ENCOUNTER 2017-05-18 18:22 | Inpatient (IN) | payer MEDICAID ==
[2017-05-18 18:23] VITALS: BMI 38.2
[2017-05-18 19:08] VITALS: TEMP 99
[2017-05-18 19:18] LABS: BASO # 0.08 K/mm3 (0.0-2.0); BASO % 0.7 % (0.0-3.0); EOS # 0.2 (0.0-0.7); EOS % 1.8 % (1.5-5.0); GRAN # 6.74 (1.4-6.5); HEMOGLOBIN 14.5 g/dL (14.0-18.0); LYMPH # 4.3 (1.2-3.4); LYMPH % 35.5 % (22.0-35.0); MEAN CELL VOLUME 89.5 fl (80.0-105.0); MEAN CORPUSCULAR HGB CONC 34.7 g/dl (31.0-37.0); MEAN PLATELET VOLUME 9.9 fl (7.0-11.0); MONO # 0.7 (0.1-0.6); RBC 4.67 10^6/uL (3.5-6.1); RED CELL DISTRIBUTION WIDTH 14.1 % (11.5-14.5); URINE BILIRUBIN NEGATIVE (NEGATIVE); URINE BLOOD NEGATIVE (NEGATIVE); URINE GLUCOSE (UA) NEGATIVE (NEGATIVE); URINE LEUKOCYTE ESTERASE NEGATIVE Leu/uL (NEGATIVE); URINE PROTEIN NEGATIVE mg/dL (<30 mg/dL); URINE UROBILINOGEN 0.2 E.U./dL (<1 E.U./dL)
[2017-05-18 19:20] LABS: URINE APPEARANCE CLEAR (CLEAR); URINE COLOR YELLOW (YELLOW)
--- NOTE | 2017-05-18 19:21 | ED PDOC ---
Arrival/HPI - General Historian: Patient <Chastity Pike - Last Filed: 05/18/17 20:16> <Antonino Cleaning - Last Filed: 05/19/17 07:00> <DreMelvin L - Last Filed: 05/19/17 09:29> - General Chief Complaint: Psychiatric Evaluation Time Seen by Provider: 05/18/17 18:42 - History of Present Illness Narrative History of Present Illness (Text): 05/18/17 19:18 32-year-old male with a history of paranoid schizophrenia noncompliant with medications, presents today with suicidal ideation. Patient states he is hearing voices that are telling him to kill himself. Patient states the voices are telling him to overdose on pills. Patient denies headache dizziness or weakness. Denies any trauma or injury. Denies chest pain or shortness of breath. Denies abdominal pain. Denies nausea or vomiting. Denies diarrhea or constipation. Patient states that he is supposed to take monthly Haldol injections but has been noncompliant for years. Patient states the only time he is taking psychiatric medications as when he is hospitalized. (Chastity Pike ) Past Medical History - Provider Review Nursing Documentation Reviewed: Yes - Travel History Have you recently traveled outside [place] w/in the past 3 mons?: No - Infectious Disease Hx of Infectious Diseases: None - Tetanus Immunization Tetanus Immunization: Unknown - Cardiac Hx Cardiac Disorders: No Hx Hypertension: No - Pulmonary Hx Tuberculosis: No - Neurological HX Cerebrovascular Accident: No Hx Seizures: No - HEENT Hx HEENT Disorder: No - Renal Hx Renal Disorder: No - Endocrine/Metabolic Hx Endocrine Disorders: No - Hematological/Oncological Hx Cancer: No - Integumentary Hx Dermatological Disorder: No - Musculoskeletal/Rheumatological Hx Musculoskeletal Disorders: No - Gastrointestinal Hx Gastrointestinal Disorders: No - Genitourinary/Gynecological Hx Sexually Transmitted Diseases: No - Psychiatric Hx Schizophrenia: Yes Hx Substance Use: Yes - Anesthesia Hx Anesthesia: No <Chastity Pike - Last Filed: 05/18/17 20:16> Family/Social History - Physician Review Nursing Documentation Reviewed: Yes Family/Social History: Unknown Family HX Smoking Status: Heavy Smoker > 10 Cigarettes Daily Hx Alcohol Use: Yes Hx Substance Use: Yes Substance used: marijuana <Chastity Pike - Last Filed: 05/18/17 20:16> Allergies/Home Meds <Chastity Pike Efrem - Last Filed: 05/18/17 20:16> <Antonino Cleaning - Last Filed: 05/19/17 07:00> <Melvin Erickson - Last Filed: 05/19/17 09:29> Allergies/Adverse Reactions: Allergies No Known Allergies Allergy (Verified 03/27/17 23:22) Home Medications: Home Meds Medication Instructions Recorded Confirmed Benztropine [Cogentin] 1 tab PO DAILY 01/18/17 01/22/17 Haloperidol [Haldol] 1 tab PO DAILY 01/18/17 01/22/17 Review of Systems - Review of Systems Constitutional: absent: Fatigue, Fevers Respiratory: absent: SOB, Cough Cardiovascular: absent: Chest Pain, Palpitations Gastrointestinal: absent: Abdominal Pain, Nausea, Vomiting Genitourinary Male: absent: Dysuria, Frequency Musculoskeletal: absent: Arthralgias, Back Pain, Neck Pain Skin: absent: Rash, Pruritis Neurological: absent: Headache, Dizziness Psychiatric: Depression, Suicidal Ideation <YuniorDamien ferreiraina T - Last Filed: 05/18/17 20:16> Physical Exam Vital Signs Reviewed: Yes Temperature: Afebrile Blood Pressure: Normal Pulse: Regular Respiratory Rate: Normal Appearance: Positive for: Well-Appearing, Non-Toxic, Comfortable Pain Distress: None Mental Status: Positive for: Alert and Oriented X 3 - Systems Exam Head: Present: Atraumatic Mouth: Present: Moist Mucous Membranes Respiratory/Chest: Present: Clear to Auscultation Cardiovascular: Present: Regular Rate and Rhythm Abdomen: No: Tenderness, Rebound, Guarding Back: Present: Normal Inspection. No: Midline Tenderness, Paraspinal Tenderness Upper Extremity: Present: Normal ROM Lower Extremity: Present: Normal ROM Neurological: Present: GCS=15, Speech Normal Skin: Present: Warm, Dry, Normal Color. No: Rashes Psychiatric: Present: Alert, Oriented x 3, Suicidal Ideation, Hallucinations. No: Homicidal Ideation <Damien Pikececilia Topete - Last Filed: 05/18/17 20:16> Vital Signs Temp Pulse Resp BP Pulse Ox 05/19/17 05:15 73 18 124/76 100 05/18/17 23:00 75 18 128/82 100 04/04/18 19:07 99.0 F 80 24 122/71 95 Medical Decision Making <Chastity Pike T - Last Filed: 05/18/17 20:16> <Antonino Cleaning - Last Filed: 05/19/17 07:00> <DreIgorwilner Gonzalez - Last Filed: 05/19/17 09:29> ED Course and Treatment: 05/18/17 19:22 Patient is nontoxic well-appearing in no distress vital signs are stable. CBC WNL CMP WNL Tylenol WNL Salicylate WNL Alcohol level WNL Urine drug screen + marijuana UA; wnl cxr: wnl ekg NSR at 80b/m no st elevations, normal axis, RBBB, pt is medically cleared for PES evaluation Patient was seen and evaluated by PES screener: janet boss signed out to dr. cleaning pending PEs evaluation and disposition. Impression; suicidal ideation (Chastity Pike) 05/18/17 21:22 PES screener states pt to have [id number] with Dr. Bradley in the morning. 05/19/17 00:36 Pt sleeping currently, in no acute distress. No evidence of alcohol withdrawal. 05/19/17 07:00 pt sleeping in nad. pending face to face. no tremors. (Antonino Cleaning) - Lab Interpretations Lab Results: 05/18/17 19:03 05/18/17 19:03 Lab Results 05/18/17 19:30: Urine Opiates Screen Negative, Urine Methadone Screen Negative, Ur Barbiturates Screen Negative, Ur Phencyclidine Scrn Negative, Ur Amphetamines Screen Negative, U Benzodiazepines Scrn Negative, U Oth Cocaine Metabols Negative, U Cannabinoids Screen Positive H 05/18/17 19:03: Alcohol, Quantitative 25 H 05/18/17 19:03: Salicylates < 1 L, Acetaminophen < 10.0 L 05/18/17 19:03: Sodium 142, Potassium 3.7, Chloride 106, Carbon Dioxide 22, Anion Gap 17, BUN 17, Creatinine 0.9, Est GFR ( Amer) > 60, Est GFR (Non- Af Amer) > 60, Random Glucose 97, Calcium 9.7, Total Bilirubin 0.3, AST 34, ALT 35, Alkaline Phosphatase 61, Total Protein 7.2, Albumin 4.2, Globulin 3.0, Albumin/Globulin Ratio 1.4 05/18/17 19:03: Urine Color Yellow, Urine Appearance Clear, Urine pH 6.0, Ur Specific [place] 1.025, Urine Protein Negative, Urine Glucose (UA) Negative, Urine Ketones Trace H, Urine Blood Negative, Urine Nitrate Negative, Urine Bilirubin Negative, Urine Urobilinogen 0.2, Ur Leukocyte Esterase Negative 05/18/17 19:03: WBC 12.0 H, RBC 4.67, Hgb 14.5, Hct 41.8 L, MCV 89.5, MCH 31.0, MCHC 34.7, RDW 14.1, Plt Count 281, MPV 9.9, Gran % 56.0, Lymph % (Auto) 35.5 H , [place] % (Auto) 6.0, Eos % (Auto) 1.8, Baso % (Auto) 0.7, Gran # 6.74 H, Lymph # (Auto) 4.3 H, [place] # (Auto) 0.7 H, Eos # (Auto) 0.2, Baso # (Auto) 0.08 - RAD Interpretation Radiology Orders: 05/18/17 18:43 CHEST PORTABLE [RAD] Stat - PA / SPORTS MEDICINE COORDINATOR / Resident Statement MD/DO has reviewed & agrees with the documentation as recorded. <Melvin Erickson - Last Filed: 05/19/17 09:29> Disposition/Present on Arrival - Present on Arrival Any Indicators Present on Arrival: No History of DVT/PE: No History of Uncontrolled Diabetes: No Urinary Catheter: No History of Decub. Ulcer: No History Surgical Site Infection Following: None - Disposition Have Diagnosis and Disposition been Completed?: Yes <Chastity Pike - Last Filed: 05/18/17 20:16> <Antonino Cleaning - Last Filed: 05/19/17 07:00> - Present on Arrival Any Indicators Present on Arrival: No - Disposition Have Diagnosis and Disposition been Completed?: Yes Disposition Time: 09:29 Patient Plan: Admission <Melvin Erickson - Last Filed: 05/19/17 09:29> - Disposition Diagnosis: Schizoaffective disorder Disposition: HOSPITALIZED Patient Problems: Current Active Problems Problem Status Onset Schizoaffective disorder Acute Condition: FAIR Referrals: PCP,NO [Primary Care Provider] - Follow up with primary Forms: [employer] (Indonesian)
[2017-05-18 19:25] LABS: ACETAMINOPHEN < 10.0 ug/ml (10.0-20.0); SALICYLATE < 1 mg/dL (2.0-20.0)
[2017-05-18 19:28] LABS: ALB/GLOB RATIO 1.4 (1.1-1.8); ALBUMIN 4.2 g/dL (3.0-4.8); ALT/SGPT 35 U/L (7-56); AST/SGOT 34 U/L (17-59); BLOOD UREA NITROGEN 17 mg/dL (7-21); CALCIUM 9.7 mg/dL (8.4-10.5); GFR AFRICAN-AMERICAN > 60; GFR NON-AFRICAN AMERICAN > 60
[2017-05-18 20:15] LABS: BARBITURATES, UR NEGATIVE (NEGATIVE); BENZODIAZEPINES, UR NEGATIVE (NEGATIVE); OPIATES, UR NEGATIVE (NEGATIVE); PHENCYCLIDINE, UR NEGATIVE (NEGATIVE)
[2017-05-19 02:52] VITALS: RESP 18; O2SAT 100
--- NOTE | 2017-05-19 07:24 | ED PDOC ---
Physical Exam Vital Signs Reviewed: Yes Vital Signs Temp Pulse Resp BP Pulse Ox 05/19/17 05:15 73 18 124/76 100 05/18/17 23:00 75 18 128/82 100 05/18/17 19:07 99.0 F 80 24 122/71 95 Temperature: Afebrile Blood Pressure: Normal Pulse: Regular Respiratory Rate: Normal Appearance: Positive for: Well-Appearing Pain Distress: None Mental Status: Positive for: Alert and Oriented X 3 Medical Decision Making ED Course and Treatment: 05/19/17 07:11 Patient transferred to [place] by Dr. Cleaning. Patient awaiting follow-up psychiatric evaluation. 05/19/17 09:27 Patient comfortable with no complaints. Patient evaluated by Dr. Yancy Bradley this morning. Patient will be admission to Psychiatry for Schizoaffective Disorder. - Lab Interpretations Lab Results: 05/18/17 19:03 05/18/17 19:03 Lab Results 05/18/17 19:30: Urine Opiates Screen Negative, Urine Methadone Screen Negative, Ur Barbiturates Screen Negative, Ur Phencyclidine Scrn Negative, Ur Amphetamines Screen Negative, U Benzodiazepines Scrn Negative, U Oth Cocaine Metabols Negative, U Cannabinoids Screen Positive H 05/18/17 19:03: Alcohol, Quantitative 25 H 05/18/17 19:03: Salicylates < 1 L, Acetaminophen < 10.0 L 05/18/17 19:03: Sodium 142, Potassium 3.7, Chloride 106, Carbon Dioxide 22, Anion Gap 17, BUN 17, Creatinine 0.9, Est GFR ( Amer) > 60, Est GFR (Non- Af Amer) > 60, Random Glucose 97, Calcium 9.7, Total Bilirubin 0.3, AST 34, ALT 35, Alkaline Phosphatase 61, Total Protein 7.2, Albumin 4.2, Globulin 3.0, Albumin/Globulin Ratio 1.4 05/18/17 19:03: Urine Color Yellow, Urine Appearance Clear, Urine pH 6.0, Ur Specific [place] 1.025, Urine Protein Negative, Urine Glucose (UA) Negative, Urine Ketones Trace H, Urine Blood Negative, Urine Nitrate Negative, Urine Bilirubin Negative, Urine Urobilinogen 0.2, Ur Leukocyte Esterase Negative 05/18/17 19:03: WBC 12.0 H, RBC 4.67, Hgb 14.5, Hct 41.8 L, MCV 89.5, MCH 31.0, MCHC 34.7, RDW 14.1, Plt Count 281, MPV 9.9, Gran % 56.0, Lymph % (Auto) 35.5 H , [place] % (Auto) 6.0, Eos % (Auto) 1.8, Baso % (Auto) 0.7, Gran # 6.74 H, Lymph # (Auto) 4.3 H, [place] # (Auto) 0.7 H, Eos # (Auto) 0.2, Baso # (Auto) 0.08 - RAD Interpretation Radiology Orders: 05/18/17 18:43 CHEST PORTABLE [RAD] Stat - Scribe Statement The provider has reviewed the documentation as recorded by the Latasha Miguel Provider Scribe Attestation: All medical record entries made by the Scribe were at my direction and personally dictated by me. I have reviewed the chart and agree that the record accurately reflects my personal performance of the history, physical exam, medical decision making, and the department course for this patient. I have also personally directed, reviewed, and agree with the discharge instructions and disposition. Disposition/Present on Arrival - Present on Arrival Any Indicators Present on Arrival: No History of DVT/PE: No History of Uncontrolled Diabetes: No Urinary Catheter: No History of Decub. Ulcer: No History Surgical Site Infection Following: None - Disposition Have Diagnosis and Disposition been Completed?: Yes Diagnosis: Schizoaffective disorder Disposition: HOSPITALIZED Disposition Time: 09:28 Patient Plan: Admission Condition: FAIR Referrals: PCP,NO [Primary Care Provider] - Follow up with primary Forms: [employer] (Sinhala)
--- NOTE | 2017-05-19 08:12 | RAD ---
HISTORY: PES eval COMPARISON: No prior. FINDINGS: LUNGS: No active pulmonary disease. PLEURA: No significant pleural effusion identified, no pneumothorax apparent. CARDIOVASCULAR: Normal. OSSEOUS STRUCTURES: No significant abnormalities. VISUALIZED UPPER ABDOMEN: Normal. OTHER FINDINGS: None. IMPRESSION: No active disease.
--- NOTE | 2017-05-19 09:47 | CARD ---
APPROVED REPORT EKG Measurement Heart [id number] <Conclusion> Normal sinus rhythm Incomplete right bundle branch block Borderline ECG
--- NOTE | 2017-05-19 11:46 | PCM.BM ---
<Antoinette Atkins - Last Filed: 05/19/17 11:43> Treatment Plan Problems - Problems identified on initial assessmt ineffective coping skills Date Initiated: 05/19/17 Time Initiated: 11:30 Assessment reference: NA Status: Active Priority: 1 altered thought r/t hearing voices Date Initiated: 05/19/17 Time Initiated: 11:30 Assessment reference: NA Status: Active Priority: 2 non compliance Date Initiated: 05/19/17 Time Initiated: 30 Assessment reference: NA Status: Active Priority: 3 Treatment assets and liabiliti Patient Assests: cooperative, self-reliant, ADL independent, negotiates basic needs, cognitively intact Patient Liabilities: poor support system, unable to read/write - Milieu Protocol Maintain good personal hygiene: daily Encourage regular showers, daily Remind patient to perform daily oral care, daily Assist patient to perform ADL's Maintain personal safety: every shift Educate patient to report safety concerns to staff, every shift Monitor environment for contraband/sharps Medication safety: Monitor for expected outcome, potential side effects: every shift, Assess barriers to learning: every shift, Assess readiness for medication education: every shift Discharge/Continuing Care - Education Needs Education Needs: Patient Medication, Patient Diagnosis/Disease Process, Patient Coping Skills, Patient Community resources, Patient Activities of Daily Living, Patient Nutrition, Patient Health Practices/Safety, Patient Personal Hygiene/ Grooming, Patient Aftercare Safety Plan - Discharge Discharge Criteria: Free of Suicidal thoughts, Free of paranoid thoughts, Free of agitation, Normal sleep pattern, Ability to care for self, Reduction of target symptoms Discharge to:: Group Home <Lolis Stephens - Last Filed: 05/20/17 14:05> Family Contact Family involvement: Famliy/SO not involved Family contact: Patient declines to allow family contact at present <Christopher Wade - Last Filed: 05/20/17 15:03> - Diagnosis (1) Schizoaffective disorder Status: Acute Interventions: Encourage compliance with following medications: Haldol 5 mg po TID for history of hallucinations cogentin 0.5 mg po TID for EPS prophylaxis Depakote 500 mg po bid for mood and impulse control Trazodone 50 mg po HS prn: insomnia Awaiting [facility] screening, if patient is not involuntarily committed, he will be discharged today AMA without medications or aftercare which he was made aware of. 04/06/18 15:02
[2017-05-19] MEDS ORDERED: DiphenhydrAMINE 50 mg/ml Inj IM PRN (11:57)
--- NOTE | 2017-05-19 15:23 | CP.PCM.PCO ---
Physician Communication Note - Physician Communication Note Physician Communication Note: pt was seen in ED as consult, see notes for more detailed info.
[2017-05-19] MEDS: Divalproex 500 mg DR(BID formulation) PO SCH (17:47)
--- NOTE | 2017-05-19 17:55 | CON ---
DATE: HISTORY OF PRESENT ILLNESS: In short, the patient is a 32-year-old male with reported history of schizophrenia spectrum disorder, polysubstance abuse and dependent. The patient has long and debilitating history of mental illness, chronic noncompliance with the medication and using drugs. The patient has history of admissions to the psychiatric inpatient unit, but leaving against medical advice within couple of days of admission. At this time, the patient came to the hospital looking for help psychotic symptoms. The patient claimed that he is hearing voices as well as he has suicidal ideations with the planned overdose on drugs. The patient was seen by PES worker overnight and it was recommended by psychiatrist on-call to have [id number] evaluation at the morning time. The patient was seen and examined today at the morning time in the emergency room. The patient presented to be sleepy, but easily arousable. Whenever the patient wakes up, he presented to be very irritable and screaming and at times cursing. The patient is poor and unreliable historian. Yes, no answers only and the patient appears to be annoyed with all of the questions. Previous history reviewed. This senior medical writer is familiar with the patient from the previous admission to the psychiatric inpatient unit here in [place] in 01/2017. The patient stayed in the psychiatric inpatient unit for 3 days and then was discharged against medical advice. The patient after that was admitted to [facility], stayed there for 3 days again and signed himself out. After that, in 03/2017. The patient was admitted to [facility] psychiatric inpatient unit, stayed only for 1 day. The patient said that he was noncompliant with the medications. He reported being on Haldol Decanoate. The patient does not remember the dose or when was the last time, the patient got this medication. It says that the patient is not taking any other medications. The patient reported being healthy. Vital signs are stable. Labs reviewed. Hematology: WBC cells 12.0, hematocrit 41.8. Chemistry also reviewed. AST and ALT within normal limits. Sodium 142, potassium 3.7. Urinalysis, ketones trace. Toxicology: Cannabis screen positive and alcohol level was 25. The patient denied chronic use of alcohol. Denied that he might be having any withdrawal symptoms. MENTAL STATUS EXAMNATION: The patient presented to be drowsy, but is easily arousable. Personal hygiene is poor. ADLs are fair. The patient presented to be irritable, angry, flat and angry affect. Mood described not good. Affect was mood congruent. Thought process concrete. Thought content, the patient reported to hear voices and seeing things, also presented to be guarded and paranoid. Insight and judgment seems to be impaired. Impulses are unpredictable. IMPRESSION: Most likely, the patient has schizophrenia spectrum disorder, alcohol abuse, cannabis abuse. PLAN: This senior medical writer offered the patient psychiatric admission. The patient was willing to sign himself into the hospital. The patient will be resumed on the Haldol with the plan to give Haldol Decanoate. The patient was advised to verbalize any thoughts of harming himself to the staff while he will be admitted to the psychiatric inpatient unit. Multivitamins, thiamine and folic acid will be given to the patient. The patient does not want to have nicotine patch. Reported that he smokes 1 pack a day. The patient is willing to sign consent for treatment. Thank you very much for letting me participate in the care of your patient. Yancy Bradley MD
--- NOTE | 2017-05-19 18:01 | CP.PCM.PCO ---
Addendum Addendum: 05/19/17 18:00 patient Became agitated, refused to take medications, appears to be psychotic and paranoid, this television script writer suggested [facility] screening process.
[2017-05-19 19:28] VITALS: BP 130/82; PULSE 88
[2017-05-20] MEDS ORDERED: Multivitamin Therapeutic Tab PO SCH (08:00)
--- NOTE | 2017-05-20 14:20 | PCM.PSYCH ---
Initial Psychiatric Evaluation - Initial Psychiatric Evaluation Type of Admission: Voluntary Legal Status: Capacity History of Present Illness and Precipitating Events: Patient is a 32-year-old single -Turkmen male with a long history of mental illness most likely schizoaffective disorder versus schizophrenia, multiple admissions to psychiatric inpatient units most recently was hospitalized at [facility] March 28 to and discharge AMA after he submitted a 48 hour letter, history of noncompliance with medications and treatment recommendations Who presented to [facility] suicidal thoughts and command auditory hallucinations telling him to kill himself. Patient was initially labile and irritable when arriving on the unit last night. Staff notes indicate that he was annoyed by another patient on the unit who was constantly yelling. Patient also refuse to take any psychiatric medications and did not give staff members any specific reason why he was refusing them. Later in the evening patient was agitated and swearing at staff, demanding to go home. Patient signed 48 hour notice at 6:30 PM yesterday on May 19, 2017. I met with patient at bedside this morning and there is improvement in irritability and organization. Patient still wants to be discharged home as soon as possible however he is not demanding or threatening and can engage in an interview without escalating. Visible on the units and can interact with peers without conflict. Patient admits he went to our ER for help with hallucinations however was never suicidal. He now wants leave because he is feeling better and hallucinations have resolved. Patient states that that he is feeling okay now and denied depression or thoughts to harm others. Patient also denies having any paranoid delusions including belief that he is being persecuted or monitored. Delusions were not elicited during both our interviews this morning. He appears groomed and he is well oriented to month date location year and circumstances. Thus far there have been no behavioral issues this morning. He refused to sign treatment plan because it is his preference to be discharged today if [facility] does not find that patient requires involuntary commitment. Social history Patient was born in [place]. He single he doesn't have any children. Patient is also homeless and unemployed. He denies any current drug or alcohol issues. Patient has a history of alcohol and MJA abuse. Psychiatric history Patient has a history of numerous psychiatric admissions both voluntary and involuntary. Most recently he was just discharged AMA on a [address] [facility] where he was hospitalized March 28 to March 29, 2017. His most recent admission to [facility] was January 18 to January 21, 2017. The following medications were called into [facility] on January 21, 2017. He was given two weeks supply with one refill of: Haldol 5 mg PO BID Cogentin 1 mg PO BID and a tapering dose of Ativan. Patient denies having any history of suicide attempts. He is generally only compliant with medications when he hospitalized. Current Medications: Active Medications Generic Name Dose Route Start Last Admin Trade Name Freq PRN Reason Stop Dose Admin Benztropine Mesylate 0.5 mg 05/19/17 16:00 05/19/17 17:47 Cogentin PO Not Given BID ROMAINE Benztropine Mesylate 0.5 mg 05/19/17 22:00 05/19/17 21:32 Cogentin PO Not Given HS ROMAINE Diphenhydramine HCl 50 mg 05/19/17 11:55 Benadryl PO Q6 PRN Insomnia Diphenhydramine HCl 50 mg 05/19/17 11:57 Benadryl IM Q6 PRN Anxiety Divalproex Sodium 500 mg 05/19/17 16:00 05/19/17 17:[address](*Bid*) PO Not Given BID ROMAINE Folic Acid 1 mg 05/20/17 08:00 Folic Acid PO DAILY ROMAINE Haloperidol 5 mg 05/19/17 16:00 05/19/17 17:46 Haldol PO Not Given BID ROMAINE Protocol Haloperidol 5 mg 05/19/17 22:00 05/19/17 21:31 Haldol PO Not Given HS ROMAINE Protocol Haloperidol 5 mg 05/19/17 11:47 Haldol PO Q6 PRN Agitation Protocol Haloperidol Lactate 5 mg 05/19/17 11:50 Haldol IM Q6 PRN Agitation Protocol Lorazepam 2 mg 05/19/17 22:00 05/19/17 21:32 Ativan PO Not Given HS ROMAINE Protocol Lorazepam 2 mg 05/19/17 11:44 Ativan PO Q6 PRN Anxiety Protocol Lorazepam 2 mg 05/19/17 11:44 Ativan IM Q6H PRN Anxiety Protocol Multivitamins 1 tab 05/20/17 08:00 Thera Tab PO 0800 ROMAINE Thiamine HCl 100 mg 05/20/17 08:00 Vitamin B1 Tab PO DAILY ROMAINE Trazodone HCl 50 mg 05/19/17 11:41 Desyrel PO HS PRN Insomnia Past Psychiatric History - Past Psychiatric History Pertinent Medical Hx (Current Medical&Sleep Prob, Allergies): Allergies Allergy/AdvReac Type Severity Reaction Status Date / Time No Known Allergies Allergy Verified 05/19/17 15:09 Benztropine [Cogentin] 1 tab PO DAILY 01/18/17 Haloperidol [Haldol] 1 tab PO DAILY 01/18/17 Benztropine [Cogentin] 1 mg PO 1000,2200 tab 01/21/17 Haloperidol [Haldol] 5 mg PO 1000,2200 tab 01/21/17 Mental Status Examination - Personal Presentation Personal Presentation: Looks stated age - Affect Affect: Broad - Motor Activity Motor Activity: Calm (Calm at this time though was labile and irritable yesterday) - Reliability in Providing Information Reliability in Providing Information: Fair - Speech Speech: Organized (organized, improved since admission) - Mood Mood: Neutral (better) - Formal Thought Process Formal Thought Process: No Impairment (Patient reports resolution of hallucinations and he is not responding to internal stimuli) - Obsessions/Compulsions Obsessions: No Compulsions: No - Cognitive Functions Orientation: Person, Place, Situation Sensorium: Alert Judgement: Imparied, as evidence by: Poor judgement, Imparied, as evidence by: Lack of insight into illness DSM 5 DX - DSM 5 DSM 5 Diagnosis: r/o schizoaffective disorder r/o schizophrenia r/o bipolar disorder with psychosis alcohol abuse - Recommended/Plan of Treatment Treatment Recommendations and Plan of Treatment: * Encourage compliance with following medications: * Haldol 5 mg po TID for history of hallucinations * cogentin 0.5 mg po TID for EPS prophylaxis * Depakote 500 mg po bid for mood and impulse control * Trazodone 50 mg po HS prn: insomnia * [facility]waiting [facility] [place], if patient is not involuntarily committed, he will be discharged today AMA without medications or aftercare which he was made aware of. * Vitals reviewed and noted below: Selected Entries 05/18/17 05/18/17 05/19/17 19:07 23:00 05:15 Temperature 99.0 F Pulse Rate 80 75 73 Pulse Rate [ Radial] Respiratory 24 18 18 Rate Blood Pressure 122/71 128/82 124/76 05/19/17 05/19/17 13:42 15:00 Temperature Pulse Rate 88 Pulse Rate [ 52 L Radial] Respiratory 18 Rate Blood Pressure 130/82 05/18/17 19:30: Urine Opiates Screen Negative, Urine Methadone Screen Negative, Ur Barbiturates Screen Negative, Ur Phencyclidine Scrn Negative, Ur Amphetamines Screen Negative, U Benzodiazepines Scrn Negative, U Oth Cocaine Metabols Negative, U Cannabinoids Screen Positive H 05/18/17 19:03: Alcohol, Quantitative 25 H 05/18/17 19:03: Salicylates < 1 L, Acetaminophen < 10.0 L 05/18/17 19:03: Sodium 142, Potassium 3.7, Chloride 106, Carbon Dioxide 22, Anion Gap 17, BUN 17, Creatinine 0.9, Est GFR ( Amer) > 60, Est GFR (Non- Af Amer) > 60, Random Glucose 97, Calcium 9.7, Total Bilirubin 0.3, AST 34, ALT 35, Alkaline Phosphatase 61, Total Protein 7.2, Albumin 4.2, Globulin 3.0, Albumin/Globulin Ratio 1.4 05/18/17 19:03: Urine Color Yellow, Urine Appearance Clear, Urine pH 6.0, Ur Specific [place] 1.025, Urine Protein Negative, Urine Glucose (UA) Negative, Urine Ketones Trace H, Urine Blood Negative, Urine Nitrate Negative, Urine Bilirubin Negative, Urine Urobilinogen 0.2, Ur Leukocyte Esterase Negative 05/18/17 19:03: WBC 12.0 H, RBC 4.67, Hgb 14.5, Hct 41.8 L, MCV 89.5, MCH 31.0, MCHC 34.7, RDW 14.1, Plt Count 281, MPV 9.9, Gran % 56.0, Lymph % (Auto) 35.5 H , [place] % (Auto) 6.0, Eos % (Auto) 1.8, Baso % (Auto) 0.7, Gran # 6.74 H, Lymph # (Auto) 4.3 H, [place] # (Auto) 0.7 H, Eos # (Auto) 0.2, Baso # (Auto) 0.08 05/18/17 19:22 cxr: wnl ekg NSR at 80b/m no st elevations, normal axis, RBBB,
[2017-05-20] MEDS: Divalproex 500 mg DR(BID formulation) PO SCH (17:43)
--- NOTE | 2017-05-21 05:30 | PCM.PYCHDC ---
Mental Status Examination - Mental Status Examination Orientation: Person, Place, Situation Memory: Intact Mood: Neutral Affect: Broad Speech: Appropriate Attention: WNL Concentration: WNL Association: WNL Fund of Knowledge: WNL Formal Thought Process: No Impairment Description of patient's judgement and insight: Patient's insight is fair and judgement is fair Psychotic Thoughts and Behaviors: Patient denies any AVH or paranoia, he is not demonstrating any signs of a delusional process. Thought process is organized. Suicidal Ideation: No Current Homicidal Ideation?: No Discharge Summary - Discharge Note Reason for Hospitalization: Patient is a 32-year-old single -E[place]ian male with a long history of mental illness most likely schizoaffective disorder versus schizophrenia, multiple admissions to psychiatric inpatient units most recently was hospitalized at [facility] March 28 to and discharge AMA after he submitted a 48 hour letter, history of noncompliance with medications and treatment recommendations Who presented to [facility] suicidal thoughts and command auditory hallucinations telling him to kill himself. Laboratory Data: Laboratory Tests 05/18/17 05/18/17 05/18/17 19:03 19:03 19:03 WBC 12.0 H RBC 4.67 Hgb 14.5 Hct 41.8 L MCV 89.5 MCH 31.0 MCHC 34.7 RDW 14.1 Plt Count 281 MPV 9.9 Gran % 56.0 Lymph % (Auto) 35.5 H [place] % (Auto) 6.0 Eos % (Auto) 1.8 Baso % (Auto) 0.7 Gran # 6.74 H Lymph # (Auto) 4.3 H [place] # (Auto) 0.7 H Eos # (Auto) 0.2 Baso # (Auto) 0.08 Sodium 142 Potassium 3.7 Chloride 106 Carbon Dioxide 22 Anion Gap 17 BUN 17 Creatinine 0.9 Est GFR ( Amer) > 60 Est GFR (Non-Af Amer) > 60 Random Glucose 97 Calcium 9.7 Total Bilirubin 0.3 AST 34 ALT 35 Alkaline Phosphatase 61 Total Protein 7.2 Albumin 4.2 Globulin 3.0 Albumin/Globulin Ratio 1.4 Urine Color Yellow Urine Appearance Clear Urine pH 6.0 Ur Specific [place] 1.025 Urine Protein Negative Urine Glucose (UA) Negative Urine Ketones Trace H Urine Blood Negative Urine Nitrate Negative Urine Bilirubin Negative Urine Urobilinogen 0.2 Ur Leukocyte Esterase Negative Salicylates Urine Opiates Screen Urine Methadone Screen Acetaminophen Ur Barbiturates Screen Ur Phencyclidine Scrn Ur Amphetamines Screen U Benzodiazepines Scrn U Oth Cocaine Metabols U Cannabinoids Screen Alcohol, Quantitative 05/18/17 05/18/17 05/18/17 19:03 19:03 19:30 WBC RBC Hgb Hct MCV MCH MCHC RDW Plt Count MPV Gran % Lymph % (Auto) [place] % (Auto) Eos % (Auto) Baso % (Auto) Gran # Lymph # (Auto) [place] # (Auto) Eos # (Auto) Baso # (Auto) Sodium Potassium Chloride Carbon Dioxide Anion Gap BUN Creatinine Est GFR ( Amer) Est GFR (Non-Af Amer) Random Glucose Calcium Total Bilirubin AST ALT Alkaline Phosphatase Total Protein Albumin Globulin Albumin/Globulin Ratio Urine Color Urine Appearance Urine pH Ur Specific [place] Urine Protein Urine Glucose (UA) Urine Ketones Urine Blood Urine Nitrate Urine Bilirubin Urine Urobilinogen Ur Leukocyte Esterase Salicylates < 1 L Urine Opiates Screen Negative Urine Methadone Screen Negative Acetaminophen < 10.0 L Ur Barbiturates Screen Negative Ur Phencyclidine Scrn Negative Ur Amphetamines Screen Negative U Benzodiazepines Scrn Negative U Oth Cocaine Metabols Negative U Cannabinoids Screen Positive H Alcohol, Quantitative 25 H Consultations:: List each consultation separately and include: 1. Reason for request. 2. Findings. 3. Follow-up Consultations: NONE Summary of Hospital Course include:: 1. Description of specific treatment plan utilized for patients during their course of treatmen. 2. Summarize the time- course for resolution of acute symptoms and/or regressed behaviors. 3. Describe issues identified and worked on during hospitalization. 4. Describe medication utilized. 5. Describe medical problems identified and treated. 6. Reassessment of suicide risk Summary of Hospital Course: Patient is a 32-year-old single -E[place]ian male with a long history of mental illness most likely schizoaffective disorder versus schizophrenia, multiple admissions to psychiatric inpatient units most recently was hospitalized at [facility] March 28 to and discharge AMA after he submitted a 48 hour letter, history of noncompliance with medications and treatment recommendations Who presented to [facility] suicidal thoughts and command auditory hallucinations telling him to kill himself. Patient was initially labile and irritable when arriving on the unit last night. Staff notes indicate that he was annoyed by another patient on the unit who was constantly yelling. Patient also refuse to take any psychiatric medications and did not give staff members any specific reason why he was refusing them. Later in the evening patient was agitated and swearing at staff, demanding to go home. Patient signed 48 hour notice at 6:30 PM yesterday on May 19, 2017. I met with patient at bedside this morning and there is improvement in irritability and organization. Patient still wants to be discharged home as soon as possible however he is not demanding or threatening and can engage in an interview without escalating. Visible on the units and can interact with peers without conflict. Patient admits he went to our ER for help with hallucinations however was never suicidal. He now wants leave because he is feeling better and hallucinations have resolved. Patient states that that he is feeling okay now and denied depression or thoughts to harm others. Patient also denies having any paranoid delusions including belief that he is being persecuted or monitored. Delusions were not elicited during both our interviews this morning. He appears groomed and he is well oriented to month date location year and circumstances. Thus far there have been no behavioral issues this morning. He refused to sign treatment plan because it is his preference to be discharged today since [facility] did not find patient to be committable during their evaluation of him on the unit. Social history Patient was born in [place]. He single he doesn't have any children. Patient is also homeless and unemployed. He denies any current drug or alcohol issues. Patient has a history of alcohol and MJA abuse. Psychiatric history Patient has a history of numerous psychiatric admissions both voluntary and involuntary. Most recently he was just discharged AMA on a 48 hour letter from [facility] where he was hospitalized March 28 to March 29, 2017. His most recent admission to [facility] was January 18 to January 21, 2017. The following medications were called into [facility] on January 21, 2017. He was given two weeks supply with one refill of: Haldol 5 mg PO BID Cogentin 1 mg PO BID and a tapering dose of Ativan. Patient denies having any history of suicide attempts. He is generally only compliant with medications when he hospitalized. - Diagnosis (1) Schizoaffective disorder Assessment and Plan: Encouraged compliance with following medications however patient refused medications on the unit: Haldol 5 mg po TID for history of hallucinations cogentin 0.5 mg po TID for EPS prophylaxis Depakote 500 mg po bid for mood and impulse control Trazodone 50 mg po HS prn: insomnia Status: Chronic Priority: Medium - Final Diagnosis (DSM 5) Condition upon Discharge: IMPROVED DSM 5: r/o schizoaffective disorder r/o schizophrenia r/o bipolar disorder with psychosis alcohol abuse Disposition: AGAINST MEDICAL ADVICE Follow-up Treatment Plan: Patient left AMA, no scripts were provided, information which was explained to him - Smoking Cessation Smoking Cessation Medication prescribed: No Reason for not providing: Left AMA - Antipsychotic Medications Pt discharged on 2 or more routine antipsychotic medications: No
== END 2017-05-20 21:09 | disposition left against medical advice (07) | DRG 430 ==
LOC: ED 18:22 → ERH 05-19 09:26 → PSYC 05-19 10:10
PROVIDERS: ADMIT Psychiatry & Neurology Psychiatry; ATTEND Psychiatry & Neurology Psychiatry
DX: F25.9 Schizoaffective disorder, unspecified (principal); Z59.0 Homelessness; Z91.14 Patient's other noncompliance with medication regimen; Z91.19 Patient's noncompliance with other medical treatment and regimen; R45.851 Suicidal ideations; F12.10 Cannabis abuse, uncomplicated; F10.10 Alcohol abuse, uncomplicated